=== PATIENT | male | born 1970 | race Caucasian/White ===

== ENCOUNTER 2017-06-11 09:39 | Emergency (ER) | payer OTHER, SELFPAY ==
[~2017-06-11] VITALS: Ht 175.3 cm; Wt 69.0 kg
[2017-06-11 12:15] VITALS: BP 122/77
== END 2017-06-11 13:11 | disposition home or self-care (01) ==
LOC: ED 09:53
DX: G93.40 Encephalopathy, unspecified (principal)
CPT/HCPCS: 70450; 72125; 99284

== ENCOUNTER 2017-06-11 18:50 | Emergency (ER) | payer SELFPAY ==
[~2017-06-11] VITALS: Ht 170.2 cm; Wt 75.0 kg
[2017-06-11] MEDS ORDERED: LIDOCAINE 1%, 20ML ONE (19:08)
[2017-06-11] MEDS ORDERED: DIPH,PERTUSS(ACELL),TET VAC/PF 0.5 ML IM-VACC ONE (19:08)
[2017-06-11] MEDS ORDERED: DIPHTHERIA-TETANUS ADULT 0.5ML IM-VACC ONE (19:30)
[2017-06-11] MEDS ORDERED: LIDOCAINE 1%, 20ML INFIL ONE (19:30)
[2017-06-11] MEDS ORDERED: BACITRACIN ZINC OINT 500U/GM, 0.9 GM ONE (20:15)
[2017-06-11 20:19] VITALS: BP 128/67
== END 2017-06-11 20:22 | disposition home or self-care (01) ==
LOC: ED 19:44
DX: S01.81XA Laceration without foreign body of other part of head, initial encounter (principal); X58.XXXA Exposure to other specified factors, initial encounter; Y93.89 Activity, other specified; Y92.488 Other paved roadways as the place of occurrence of the external cause; Y99.8 Other external cause status
CPT/HCPCS: 12011; 70450; 90714

== ENCOUNTER 2017-06-13 20:39 | Inpatient (IN) | payer SELFPAY ==
[~2017-06-13] VITALS: Ht 175.3 cm; Wt 103.2 kg
[2017-06-13] MEDS ORDERED: DIPH,PERTUSS(ACELL),TET VAC/PF 0.5 ML IM-VACC ONE ×2 (20:55→21:00)
[2017-06-13] MEDS ORDERED: BACITRACIN ZINC OINT 500U/GM, 0.9 GM ONE ×3 (20:55→21:29)
[2017-06-13] MEDS ORDERED: LORazepam 2 MG/ML, 1ML ONE (20:57)
[2017-06-13] MEDS ORDERED: LORazepam 2 MG/ML, 1ML IVPush ONE (21:00)
[2017-06-13] MEDS ORDERED: SODIUM CHLORIDE 0.9% 1,000ML IVBOLUS ONE (21:00)
[2017-06-13] MEDS ORDERED: SODIUM CHLORIDE FLUSH 10ML SYR IVF ONE (21:00)
[2017-06-13 21:17] LABS: ASPARTATE AMINO TRANSFERASE 77 U/L (15-37); BLOOD UREA NITROGEN 11 mg/dL (7-18)
[2017-06-13] MEDS ORDERED: POTASSIUM CHLORIDE 40 MEQ in SODIUM CHLORIDE 0.9% 1,000 ML IV ONE (21:29)
[2017-06-13] MEDS ORDERED: NS + 40MEQ KCL 1,000 ML IV ONE (21:34)
[2017-06-13] MEDS: NS + 20MEQ KCL 1,000 ML IV SCH (21:40)
[2017-06-13] MEDS ORDERED: BISACODYL 10 MG SUPP PR PRN (22:00)
[2017-06-13] MEDS ORDERED: DOCUSATE 100 MG CAPSULE PO PRN (22:00)
[2017-06-13] MEDS ORDERED: PROMETHAZINE 25 MG/ML, 1ML IM PRN (22:00)
[2017-06-13] MEDS ORDERED: POLYETHYLENE GLYCOL 17 GM PACKET PO PRN (22:00)
[2017-06-13] MEDS ORDERED: TETRAHYDROZOLINE OPHTH 0.05% 15ML EACHEYE PRN (22:00)
[2017-06-13] MEDS ORDERED: POTASSIUM CHLORIDE 20 MEQ TAB.ER.PRT PO SCH (22:00)
[2017-06-13] MEDS ORDERED: ACETAMINOPHEN 325 MG TABLET PO PRN (22:00)
[2017-06-13] MEDS ORDERED: ONDANSETRON 2MG/ML, 2ML IVPush PRN (22:00)
[2017-06-13] MEDS ORDERED: MAGNESIUM SULFATE PMX 4GM/100M 100 ML IV ONE (23:00)
[2017-06-13] MEDS: BACLOFEN 10 MG TABLET PO SCH (23:50)
[2017-06-13] MEDS: NICOTINE 7 MG/24 HR PATCH.TD24 TD SCH (23:51)
[2017-06-13] MEDS: ENOXAPARIN 40 MG/0.4 ML SQ SCH (23:51)
[2017-06-13] MEDS: POTASSIUM CHLORIDE 20 MEQ, MAGNESIUM SULFATE 1 GM, THIAMINE 100 MG, FOLIC ACID 1 MG, MV... IV SCH (23:54)
[2017-06-14 00:28] LABS: DAU SCREEN DISCLAIMER
[2017-06-14 01:51] VITALS: BP 126/90
[2017-06-14 05:02] VITALS: BP 146/53
[2017-06-14 05:35] LABS: BLOOD UREA NITROGEN 8 mg/dL (7-18)
[2017-06-14 06:12] LABS: ASPARTATE AMINO TRANSFERASE 71 U/L (15-37)
[2017-06-14 08:30] VITALS: BP_SYST 112; BP_SYST 117; BP_SYST 152; BP_DIAS 81; BP_DIAS 85
[2017-06-14] MEDS ORDERED: POTASSIUM PHOSPHATE 44 MEQ in SODIUM CHLORIDE 0.9% 500 ML IV ONE (09:00)
[2017-06-14] MEDS: LORazepam 2 MG/ML, 1ML IVPush PRN ×2 (10:06→22:11)
[2017-06-14] MEDS: POTASSIUM CHLORIDE 40 MEQ in SODIUM CHLORIDE 0.9% 500 ML IV SCH ×2 (10:06→16:43)
[2017-06-14] MEDS: BACLOFEN 10 MG TABLET PO SCH ×2 (10:06→22:11)
[2017-06-14 14:30] VITALS: BP_SYST 137; BP_SYST 138; BP_SYST 141; BP_DIAS 92; BP_DIAS 95; BP_DIAS 98
[2017-06-14] MEDS: NS + 20MEQ KCL 1,000 ML IV SCH (18:27)
[2017-06-14 20:35] VITALS: BP_SYST 126; BP_SYST 129; BP_SYST 131; BP_DIAS 82; BP_DIAS 83; BP_DIAS 91
[2017-06-14] MEDS: NICOTINE 7 MG/24 HR PATCH.TD24 TD SCH (22:11)
[2017-06-14] MEDS: POTASSIUM CHLORIDE 20 MEQ, MAGNESIUM SULFATE 1 GM, THIAMINE 100 MG, FOLIC ACID 1 MG, MV... IV SCH (22:11)
[2017-06-14] MEDS: ENOXAPARIN 40 MG/0.4 ML SQ SCH (22:11)
[2017-06-15] VITALS (8 sets, daily range): BP systolic 129–163; BP diastolic 84–115
[2017-06-15 05:46] LABS: BLOOD UREA NITROGEN 9 mg/dL (7-18)
[2017-06-15] MEDS: NS + 20MEQ KCL 1,000 ML IV SCH (09:00)
[2017-06-15] MEDS: BACLOFEN 10 MG TABLET PO SCH ×2 (09:41→21:42)
[2017-06-15] MEDS ORDERED: MAGNESIUM SULFATE PMX 2GM/50ML 50 ML IV ONE (10:00)
[2017-06-15] MEDS: POTASSIUM CHLORIDE 40 MEQ in SODIUM CHLORIDE 0.9% 500 ML IV SCH ×2 (10:24→15:11)
[2017-06-15] MEDS ORDERED: ONDANSETRON 2MG/ML, 2ML IVPush PRN (15:30)
[2017-06-15] MEDS ORDERED: BISACODYL 10 MG SUPP PR PRN (15:30)
[2017-06-15] MEDS ORDERED: POLYETHYLENE GLYCOL 17 GM PACKET PO PRN (15:30)
[2017-06-15] MEDS ORDERED: DOCUSATE 100 MG CAPSULE PO PRN (15:30)
[2017-06-15] MEDS ORDERED: ACETAMINOPHEN 325 MG TABLET PO PRN (15:30)
[2017-06-15] MEDS ORDERED: POTASSIUM PHOSPHATE 44 MEQ in SODIUM CHLORIDE 0.9% 500 ML IV ONE (18:00)
[2017-06-15] MEDS: ENOXAPARIN 40 MG/0.4 ML SQ SCH (21:43)
[2017-06-15] MEDS: NICOTINE 7 MG/24 HR PATCH.TD24 TD SCH (21:43)
[2017-06-16] VITALS (13 sets, daily range): BP systolic 126–156; BP diastolic 95–116
[2017-06-16 05:14] LABS: BLOOD UREA NITROGEN 8 mg/dL (7-18)
[2017-06-16] MEDS: BACLOFEN 10 MG TABLET PO SCH ×2 (08:48→20:26)
[2017-06-16] MEDS ORDERED: NICOTINE 7 MG/24 HR PATCH.TD24 TD SCH (13:00)
[2017-06-16] MEDS: LISINOPRIL 10 MG TABLET PO SCH ×2 (16:37→20:12)
[2017-06-16] MEDS: METOPROLOL TARTRATE 50 MG TABLET PO SCH (16:38)
[2017-06-16] MEDS: MAGNESIUM OXIDE 400 MG TABLET PO SCH (20:26)
[2017-06-16] MEDS: ENOXAPARIN 40 MG/0.4 ML SQ SCH (22:21)
[2017-06-17 02:00] VITALS: BP 128/98
[2017-06-17 05:42] LABS: BLOOD UREA NITROGEN 12 mg/dL (7-18)
[2017-06-17] MEDS: METOPROLOL TARTRATE 50 MG TABLET PO SCH (06:16)
[2017-06-17 07:06] VITALS: BP 119/91
[2017-06-17 07:11] VITALS: BP 114/87
[2017-06-17 07:16] VITALS: BP 116/90
[2017-06-17] MEDS: BACLOFEN 10 MG TABLET PO SCH (08:12)
[2017-06-17] MEDS: LISINOPRIL 10 MG TABLET PO SCH (08:13)
[2017-06-17] MEDS: MAGNESIUM OXIDE 400 MG TABLET PO SCH (08:13)
[2017-06-17 10:58] VITALS: BP 127/86
[2017-06-17] MEDS ORDERED: METO50TA82 PO (11:06)
[2017-06-17] MEDS ORDERED: TRAM50TA2 PO (11:06)
[2017-06-17] MEDS ORDERED: POLY17PO5 PO (11:06)
[2017-06-17] MEDS ORDERED: LISI-167 PO (11:06)
[2017-06-17] MEDS ORDERED: MAGN400T26 PO (11:06)
[2017-06-17] MEDS ORDERED: NICO1PAT10 TD (11:06)
[2017-06-17] MEDS ORDERED: THIA100T10 PO (11:07)
[2017-06-17] MEDS ORDERED: FOLI-17 PO (11:07)
== END 2017-06-17 13:00 | disposition home or self-care (01) | DRG 988 ==
LOC: ED 21:50 → EDIP 21:55 → 4WST 22:48
PROC: 0WQ0XZZ Repair Head, External Approach (ICD-10-PCS; principal; 2017-06-13)
DX: E86.0 Dehydration (principal); F10.239 Alcohol dependence with withdrawal, unspecified; F10.20 Alcohol dependence, uncomplicated; J45.909 Unspecified asthma, uncomplicated; F17.210 Nicotine dependence, cigarettes, uncomplicated; E87.1 Hypo-osmolality and hyponatremia; E87.6 Hypokalemia; E87.2 Acidosis; D75.89 Other specified diseases of blood and blood-forming organs; E83.39 Other disorders of phosphorus metabolism; R56.9 Unspecified convulsions; W18.30XA Fall on same level, unspecified, initial encounter; S01.81XA Laceration without foreign body of other part of head, initial encounter; K70.10 Alcoholic hepatitis without ascites; Y92.481 Parking lot as the place of occurrence of the external cause; Y93.89 Activity, other specified; Y99.8 Other external cause status
CPT/HCPCS: 36415; 70450; 70486; 72125; 80048; 80053; 80307; 82607; 82746; 83036; 83735; 84100; 84443; 85025; 87324; 90715; 93005; J1650; J3411; J3475; J3480; J2060; J7030; J7040

== ENCOUNTER 2017-08-08 01:54 | Emergency (ER) | payer MEDICAID, OTHER ==
[~2017-08-08] VITALS: Ht 177.8 cm; Wt 85.5 kg
[~2017-08-08 01:54] MED LIST: FOLI-17 PO; LISI-167 PO; MAGN400T26 PO; METO50TA82 PO; NICO1PAT10 TD; POLY17PO5 PO; THIA100T10 PO; TRAM50TA2 PO
[2017-08-08] MEDS ORDERED: OXYcodone/APAP 10/325MG TABLET PO ONE (03:00)
[2017-08-08] MEDS ORDERED: CEPHALEXIN 500 MG CAPSULE PO ONE (03:00)
[2017-08-08] MEDS ORDERED: SULFAMETH./TRIMETHOPRIM DS 800MG/160MG TABLET PO ONE (03:00)
[2017-08-08] MEDS ORDERED: SULFAMETH./TRIMETHOPRIM DS 800MG/160MG TABLET ONE (03:03)
[2017-08-08] MEDS ORDERED: CEPHALEXIN 500 MG CAPSULE ONE (03:03)
[2017-08-08] MEDS ORDERED: OXYcodone/APAP 10/325MG TABLET ONE (03:04)
[2017-08-08 04:09] VITALS: BP 103/64
== END 2017-08-08 04:11 | disposition home or self-care (01) ==
LOC: ED 02:29
DX: S81.811A Laceration without foreign body, right lower leg, initial encounter (principal); I10 Essential (primary) hypertension; J45.909 Unspecified asthma, uncomplicated; Z91.012 Allergy to eggs; W18.39XA Other fall on same level, initial encounter; Y93.E1 Activity, personal bathing and showering; Y92.89 Other specified places as the place of occurrence of the external cause; Y99.8 Other external cause status
CPT/HCPCS: 99284

== ENCOUNTER 2017-08-10 18:09 | Inpatient (IN) | payer MEDICAID ==
[~2017-08-10] VITALS: Ht 175.3 cm; Wt 88.4 kg
[~2017-08-10 18:09] MED LIST changes: +NICO-485 TD; -NICO1PAT10 TD
[2017-08-10] MEDS ORDERED: SODIUM CHLORIDE 0.9% 1,000ML IVBOLUS ONE ×2 (19:00→20:00)
[2017-08-10] MEDS ORDERED: VANCOMYCIN 1,800 MG in SODIUM CHLORIDE 0.9% 250 ML IV ONE (19:00)
[2017-08-10] MEDS ORDERED: SODIUM CHLORIDE FLUSH 10ML SYR IVF ONE (19:00)
[2017-08-10] MEDS ORDERED: VANCOMYCIN PER PHARMACY IV ONE (19:00)
[2017-08-10 19:27] LABS: HEMATOCRIT 40.5 % (39.2-51.8); HEMOGLOBIN 13.8 g/dL (13.7-18.0); WHITE BLOOD COUNT 18.2 x10^3/uL (3.4-10)
[2017-08-10 19:34] LABS: ASPARTATE AMINO TRANSFERASE 19 U/L (15-37); BLOOD UREA NITROGEN 15 mg/dL (7-18)
[2017-08-10 19:47] LABS: DIFF TOTAL CELLS COUNTED 100 CELL DIFF
[2017-08-10 19:51] LABS: GIANT PLATELETS 1+; LARGE PLATELETS 1+
[2017-08-10 19:52] LABS: VERIFY COUNTS? YES
[2017-08-10] MEDS ORDERED: CEFTRIAXONE PMX 1GM/50ML 50 ML ONE (19:59)
[2017-08-10] MEDS ORDERED: POTASSIUM CHLORIDE 40 MEQ in SODIUM CHLORIDE 0.9% 500 ML IV ONE (20:00)
[2017-08-10] MEDS ORDERED: CEFTRIAXONE PMX 1GM/50ML 50 ML IV ONE (20:00)
[2017-08-10] MEDS: METOPROLOL TARTRATE 50 MG TABLET PO SCH (20:30)
[2017-08-10] MEDS ORDERED: POLYETHYLENE GLYCOL 17 GM PACKET PO PRN (20:30)
[2017-08-10] MEDS: NICOTINE 7 MG/24 HR PATCH.TD24 TD SCH (20:30)
[2017-08-10] MEDS ORDERED: hydrALAzine 20 MG/ML, 1ML IVPush PRN (20:30)
[2017-08-10] MEDS ORDERED: VANCOMYCIN PER PHARMACY MC PRN (20:30)
[2017-08-10] MEDS ORDERED: ACETAMINOPHEN 325 MG TABLET PO PRN (20:30)
[2017-08-10] MEDS ORDERED: ONDANSETRON 2MG/ML, 2ML IVPush PRN (20:30)
[2017-08-10] MEDS ORDERED: ZOLPIDEM 5MG TABLET PO PRN (20:30)
[2017-08-10] MEDS ORDERED: morphine SULFATE 10 MG/ML, 1ML IVPush PRN (20:30)
[2017-08-10] MEDS: CEFTRIAXONE PMX 1GM/50ML 50 ML IV SCH (23:22)
[2017-08-11] MEDS ORDERED: LISINOPRIL 20 MG TABLET ONE (00:54)
[2017-08-11] MEDS ORDERED: ENOXAPARIN 40 MG/0.4 ML ONE (00:54)
[2017-08-11] MEDS: ENOXAPARIN 40 MG/0.4 ML SQ SCH ×2 (00:58→21:00)
[2017-08-11] MEDS: LISINOPRIL 10 MG TABLET PO SCH ×3 (00:58→23:58)
[2017-08-11] MEDS ORDERED: NS + 20MEQ KCL 1,000 ML IV ONE (02:54)
[2017-08-11] MEDS: MAGNESIUM OXIDE 400 MG TABLET PO SCH ×3 (03:31→23:58)
[2017-08-11] MEDS: NS + 20MEQ KCL 1,000 ML IV SCH ×2 (03:32→18:29)
[2017-08-11 04:51] LABS: HEMATOCRIT 37.5 % (39.2-51.8); WHITE BLOOD COUNT 11.6 x10^3/uL (3.4-10)
[2017-08-11 04:57] LABS: BLOOD UREA NITROGEN 13 mg/dL (7-18)
[2017-08-11] MEDS ORDERED: PHARMACOKINETIC MONITORING MC PRN (05:30)
[2017-08-11 05:32] LABS: DIFF TOTAL CELLS COUNTED 100 CELL DIFF
[2017-08-11 05:34] LABS: VERIFY COUNTS? YES
[2017-08-11] MEDS ORDERED: METOPROLOL TARTRATE 50 MG TABLET ONE (05:42)
[2017-08-11] MEDS: METOPROLOL TARTRATE 50 MG TABLET PO SCH ×2 (06:07→18:28)
[2017-08-11] MEDS: VANCOMYCIN 1,800 MG in SODIUM CHLORIDE 0.9% 250 ML IV SCH ×2 (06:25→21:00)
[2017-08-11] MEDS: THIAMINE 100MG TABLET PO SCH (08:11)
[2017-08-11] MEDS: PANTOPRAZOLE 40 MG IV IVPush SCH (08:11)
[2017-08-11] MEDS: FOLIC ACID 1 MG TABLET PO SCH (08:11)
[2017-08-11] MEDS: CEFTRIAXONE PMX 1GM/50ML 50 ML IV SCH ×2 (08:57→23:57)
[2017-08-11 15:12] VITALS: BP 138/85
[2017-08-11 20:10] VITALS: BP 129/88
[2017-08-11] MEDS: NICOTINE 7 MG/24 HR PATCH.TD24 TD SCH (21:00)
[2017-08-11] MEDS ORDERED: FLUTICASONE/VILANTEROL 100-25MCG/INH INH ONE (21:30)
[2017-08-11] MEDS: FLUTICASONE/VILANTEROL 100-25MCG/INH INH SCH (21:44)
[2017-08-12 04:00] VITALS: BP 138/89
[2017-08-12] MEDS: METOPROLOL TARTRATE 50 MG TABLET PO SCH ×2 (04:59→17:49)
[2017-08-12 06:02] LABS: HEMATOCRIT 36.4 % (39.2-51.8); HEMOGLOBIN 12.4 g/dL (13.7-18.0); WHITE BLOOD COUNT 10.7 x10^3/uL (3.4-10)
[2017-08-12 06:16] LABS: BLOOD UREA NITROGEN 8 mg/dL (7-18)
[2017-08-12 08:34] VITALS: BP 145/99
[2017-08-12] MEDS: FOLIC ACID 1 MG TABLET PO SCH (09:00)
[2017-08-12] MEDS ORDERED: POTASSIUM CHLORIDE 20 MEQ TAB.ER.PRT PO ONE (09:00)
[2017-08-12] MEDS: FLUTICASONE/VILANTEROL 100-25MCG/INH INH SCH (09:03)
[2017-08-12] MEDS: VANCOMYCIN 1,800 MG in SODIUM CHLORIDE 0.9% 250 ML IV SCH ×2 (09:03→21:16)
[2017-08-12] MEDS: MAGNESIUM OXIDE 400 MG TABLET PO SCH ×2 (09:04→21:17)
[2017-08-12] MEDS: LISINOPRIL 10 MG TABLET PO SCH ×2 (09:04→21:17)
[2017-08-12] MEDS: PANTOPRAZOLE 40 MG IV IVPush SCH (09:04)
[2017-08-12] MEDS: THIAMINE 100MG TABLET PO SCH (09:04)
[2017-08-12] MEDS: NS + 20MEQ KCL 1,000 ML IV SCH (11:04)
[2017-08-12] MEDS: CEFTRIAXONE PMX 1GM/50ML 50 ML IV SCH (12:13)
[2017-08-12 15:41] VITALS: BP 144/97
[2017-08-12] MEDS: LACTOBACILLUS CHEW TABLET PO SCH ×2 (16:30→21:17)
[2017-08-12] MEDS: IBUPROFEN 200 MG TABLET PO PRN (16:31)
[2017-08-12 20:24] VITALS: BP 146/98
[2017-08-12] MEDS: ENOXAPARIN 40 MG/0.4 ML SQ SCH (21:17)
[2017-08-12] MEDS: NICOTINE 7 MG/24 HR PATCH.TD24 TD SCH (21:17)
[2017-08-13] MEDS: IBUPROFEN 200 MG TABLET PO PRN ×3 (00:04→21:33)
[2017-08-13] MEDS: CEFTRIAXONE PMX 1GM/50ML 50 ML IV SCH (00:04)
[2017-08-13] MEDS: NS + 20MEQ KCL 1,000 ML IV SCH ×2 (00:04→13:53)
[2017-08-13 03:13] VITALS: BP 145/98
[2017-08-13] MEDS: METOPROLOL TARTRATE 50 MG TABLET PO SCH ×2 (06:11→18:09)
[2017-08-13 08:00] VITALS: BP 150/98
[2017-08-13] MEDS: FOLIC ACID 1 MG TABLET PO SCH (08:48)
[2017-08-13] MEDS: THIAMINE 100MG TABLET PO SCH (08:50)
[2017-08-13] MEDS: LISINOPRIL 10 MG TABLET PO SCH ×2 (08:51→21:25)
[2017-08-13] MEDS: MAGNESIUM OXIDE 400 MG TABLET PO SCH ×2 (08:51→21:25)
[2017-08-13] MEDS: LACTOBACILLUS CHEW TABLET PO SCH ×3 (08:52→21:25)
[2017-08-13] MEDS: VANCOMYCIN 1,800 MG in SODIUM CHLORIDE 0.9% 250 ML IV SCH (08:53)
[2017-08-13] MEDS: FLUTICASONE/VILANTEROL 100-25MCG/INH INH SCH (08:55)
[2017-08-13] MEDS: PANTOPRAZOLE 40 MG IV IVPush SCH (08:55)
[2017-08-13 12:34] LABS: HEMATOCRIT 37.7 % (39.2-51.8); HEMOGLOBIN 12.8 g/dL (13.7-18.0); WHITE BLOOD COUNT 9.8 x10^3/uL (3.4-10)
[2017-08-13 12:44] LABS: BLOOD UREA NITROGEN 8 mg/dL (7-18)
[2017-08-13] MEDS: CEFAZOLIN PMX 2GM/50ML 50 ML IVPB SCH ×2 (13:53→21:25)
[2017-08-13 14:25] VITALS: BP 148/96
[2017-08-13 20:01] VITALS: BP 146/105
[2017-08-13] MEDS: NICOTINE 7 MG/24 HR PATCH.TD24 TD SCH (21:25)
[2017-08-13] MEDS: ENOXAPARIN 40 MG/0.4 ML SQ SCH (21:25)
[2017-08-14 02:35] VITALS: BP 154/98
[2017-08-14] MEDS: NS + 20MEQ KCL 1,000 ML IV SCH (05:47)
[2017-08-14] MEDS: METOPROLOL TARTRATE 50 MG TABLET PO SCH (05:47)
[2017-08-14] MEDS: CEFAZOLIN PMX 2GM/50ML 50 ML IVPB SCH ×2 (05:47→13:36)
[2017-08-14 07:44] VITALS: BP 163/104
[2017-08-14] MEDS: FOLIC ACID 1 MG TABLET PO SCH (07:47)
[2017-08-14] MEDS: FLUTICASONE/VILANTEROL 100-25MCG/INH INH SCH (07:47)
[2017-08-14] MEDS: LACTOBACILLUS CHEW TABLET PO SCH (07:47)
[2017-08-14] MEDS: THIAMINE 100MG TABLET PO SCH (07:47)
[2017-08-14] MEDS: LISINOPRIL 10 MG TABLET PO SCH (07:47)
[2017-08-14] MEDS: MAGNESIUM OXIDE 400 MG TABLET PO SCH (07:47)
[2017-08-14] MEDS: PANTOPRAZOLE 40 MG IV IVPush SCH (07:47)
[2017-08-14] MEDS: IBUPROFEN 200 MG TABLET PO PRN (08:10)
[2017-08-14 10:00] VITALS: BP 144/89
[2017-08-14] MEDS ORDERED: AMOX1TAB64 PO (14:46)
[2017-08-14 14:55] VITALS: BP 152/93
== END 2017-08-14 15:35 | disposition home or self-care (01) | DRG 872 ==
LOC: ED 20:17 → EDIP 20:18 → 3NE 08-11 13:12
PROVIDERS: ADMIT Internal Medicine; ATTEND Hospitalist
DX: A41.9 Sepsis, unspecified organism (principal); E87.1 Hypo-osmolality and hyponatremia; I10 Essential (primary) hypertension; L03.115 Cellulitis of right lower limb; F10.239 Alcohol dependence with withdrawal, unspecified; W18.30XA Fall on same level, unspecified, initial encounter; E87.6 Hypokalemia; F17.200 Nicotine dependence, unspecified, uncomplicated; J45.909 Unspecified asthma, uncomplicated; Y92.002 Bathroom of unspecified non-institutional (private) residence as the place of occurrence of the external cause; Y93.01 Activity, walking, marching and hiking
CPT/HCPCS: 36415; 80048; 80053; 80202; 83605; 83735; 84145; 85025; 87040; 87070; 87081; 87147; 87205; 96365; 96368; J0690; J0696; J1650; J3370; J3480; C9113; J7030; J7040; J7050

== ENCOUNTER 2018-02-28 10:18 | Emergency (ER) | payer MEDICAID ==
[~2018-02-28] VITALS: Ht 175.3 cm; Wt 86.0 kg
[~2018-02-28 10:18] MED LIST changes: +AMOX1TAB64 PO
[2018-02-28 10:23] VITALS: BP 129/84
[2018-02-28] MEDS ORDERED: TRAZ100T15 PO (10:40)
[2018-02-28 11:00] LABS: BASOPHILS # (AUTO) 0.03 x10^3/uL (0-0.1); BASOPHILS % (AUTO) 1 % (0-1); EOSINOPHILS # (AUTO) 0.02 x10^3/uL (0-0.4); EOSINOPHILS % (AUTO) 0 % (1-7); HEMOGRAM NOTE RECHECKED; LYMPHOCYTES # (AUTO) 0.95 x10^3/uL (1-3.4); LYMPHOCYTES % (AUTO) 16 % (22-44); MD NO; MEAN CORPUSCULAR HEMOGLOBIN 34.5 pg (27.5-34.5); MEAN CORPUSCULAR HGB CONC 34.9 g/dL (33.2-36.2); MEAN CORPUSCULAR VOLUME 98.9 fL (81-97); MEAN PLATELET VOLUME 9.5 fL (7.4-10.4); MONOCYTES # (AUTO) 0.58 x10^3/uL (0.2-0.8); MONOCYTES % (AUTO) 10 % (2-9); NEUTROPHILS # (AUTO) 4.42 x10^3/uL (1.8-6.8); NEUTROPHILS % (AUTO) 74 % (42-75); PLATELET COUNT 98 x10^3/uL (130-400); RED BLOOD COUNT 4.57 x10^6/uL (4.38-5.82); RED CELL DISTRIBUTION WIDTH 14.3 % (9.4-14.8)
[2018-02-28 11:10] LABS: ALANINE AMINOTRANSFERASE 101 U/L (12-78); ALBUMIN 3.6 g/dL (3.4-5.0); ANION GAP 8 mmol/L (5-15); CALCIUM 9.8 mg/dL (8.5-10.1); CHLORIDE 96 mmol/L (98-107); CREATININE 0.93 mg/dL (0.7-1.3)
[2018-02-28 11:12] LABS: ALKALINE PHOSPHATASE 105 U/L (45-117); BILIRUBIN,TOTAL 0.9 mg/dL (0.2-1.0); TOTAL PROTEIN 7.3 g/dL (6.4-8.2)
== END 2018-02-28 11:57 | disposition home or self-care (01) ==
LOC: ED 11:40
DX: E87.6 Hypokalemia (principal); D69.6 Thrombocytopenia, unspecified; F10.20 Alcohol dependence, uncomplicated; R74.0 Nonspecific elevation of levels of transaminase and lactic acid dehydrogenase [LDH]; J45.909 Unspecified asthma, uncomplicated; I10 Essential (primary) hypertension
CPT/HCPCS: 36415; 80053; 85025; 93005; 99285

== ENCOUNTER 2020-04-14 07:09 | Emergency (ER) | payer MEDICAID ==
[~2020-04-14] VITALS: Ht 175.3 cm; Wt 85.0 kg
[~2020-04-14 07:09] MED LIST changes: +TRAZ-175 PO
--- NOTE | 2020-04-14 07:22 | NUR ---
PT BIB [facility], PT FOUND DOWN UNDER BELIEVE SIGN DOWNTOWN. PT WITH REPORTED "LOTS" OF VODKA CONSUMPTION THIS AM. PT A0X4, NOTED LAC TO BACK OF HEAD AND HEMATOMA TO BACK OF HEAD. GROSS NEURO EXAM INTACT. PT PRESENTS WITH SOILED SHIRT WITH URINE. PT TO BP, CONT PULSE OX. ERMD IN TO EVAL PT, ORDERS RECIEVED
[2020-04-14] MEDS ORDERED: LIDOCAINE 1%-EPI 1:100K, 20ML ONE (08:19)
--- NOTE | 2020-04-14 08:33 | NUR ---
HEAD LAC CLEANED X2. PT BACK FROM IMAGING, SUTURE AND STAPLE SETUP PROVIDED. VSS. NAD NOTED AT THIS TIME
[2020-04-14 10:20] VITALS: BP 111/63
--- NOTE | 2020-04-14 10:50 | NUR ---
PT PROVIDED WITH NEW CLOTHING FROM [employer]. CAB VOUCHER PROVIDER. DISCHARGE INSTRUCTIONS GIVEN TO PT
== END 2020-04-14 10:56 | disposition home or self-care (01) ==
LOC: ED 10:20
DX: S01.01XA Laceration without foreign body of scalp, initial encounter (principal); S01.112A Laceration without foreign body of left eyelid and periocular area, initial encounter; F10.20 Alcohol dependence, uncomplicated; I10 Essential (primary) hypertension; J45.909 Unspecified asthma, uncomplicated; W18.39XA Other fall on same level, initial encounter; Y93.89 Activity, other specified; Y92.488 Other paved roadways as the place of occurrence of the external cause; Y99.8 Other external cause status; Y90.0 Blood alcohol level of less than 20 mg/100 ml
CPT/HCPCS: 12001; 12011; 70450; 99284

== ENCOUNTER 2020-04-16 10:25 | Emergency (ER) | payer MEDICAID ==
[~2020-04-16] VITALS: Ht 175.3 cm; Wt 83.2 kg
--- NOTE | 2020-04-16 10:57 | NUR ---
ANGEL CADET AT BEDSIDE FOR ASSESSMENT.
[2020-04-16] MEDS ORDERED: SULFAMETH./TRIMETHOPRIM DS 800MG/160MG TABLET ONE (10:59)
[2020-04-16] MEDS ORDERED: CEPHALEXIN 500 MG CAPSULE ONE (10:59)
[2020-04-16] MEDS ORDERED: SULFAMETH./TRIMETHOPRIM DS 800MG/160MG TABLET PO ONE (11:00)
[2020-04-16] MEDS ORDERED: CEPHALEXIN 500 MG CAPSULE PO ONE (11:00)
[2020-04-16] MEDS ORDERED: NEOSPORIN OINT. PKT 1 PACKET ONE ×2 (11:00→11:26)
--- NOTE | 2020-04-16 11:09 | NUR ---
TECH AT BESIDE TO APPLY DRSG TO PT'S WD.
--- NOTE | 2020-04-16 11:41 | NUR ---
PT GIVEN D/C PAPERWORK, VERBALZED UNDERSTANDING. PT GIVEN EXTRA DRSG SUPPLIES. HAS ALL OWN BELONGINGS UPON D/C.
[2020-04-16 11:42] VITALS: BP 127/87
== END 2020-04-16 11:44 | disposition home or self-care (01) ==
LOC: ED 10:47
DX: L03.116 Cellulitis of left lower limb (principal); L03.115 Cellulitis of right lower limb; I10 Essential (primary) hypertension; J45.909 Unspecified asthma, uncomplicated
CPT/HCPCS: 99283

== ENCOUNTER 2020-04-26 02:37 | Emergency (ER) | payer MEDICAID ==
[~2020-04-26] VITALS: Ht 170.2 cm; Wt 86.1 kg
[2020-04-26 02:41] VITALS: BP 148/93
--- NOTE | 2020-04-26 03:19 | NUR ---
RON ON SCALP AND SURTURES ON FACE REMOVED PER ERP. PT TOLERATED WELL, SITES HEALING WELL, EDGES WELL APPROXIMATED.
== END 2020-04-26 03:37 | disposition home or self-care (01) ==
LOC: ED 03:07
DX: S01.112D Laceration without foreign body of left eyelid and periocular area, subsequent encounter (principal); S01.01XD Laceration without foreign body of scalp, subsequent encounter; Z76.0 Encounter for issue of repeat prescription; I10 Essential (primary) hypertension; J45.909 Unspecified asthma, uncomplicated; X58.XXXD Exposure to other specified factors, subsequent encounter
CPT/HCPCS: 99281